=== PATIENT | male | born 1960 | race Caucasian/White ===

== ENCOUNTER 2020-08-28 13:44 | Emergency (ER) | payer OTHER ==
[~2020-08-28] VITALS: Ht 177.8 cm; Wt 83.9 kg
[~2020-08-28 13:44] MED LIST: LEVAQUIN750 M1 PO; PHARMASSURE FO0.4 MG PO
[2020-08-28] MEDS ORDERED: IBUPROFEN600 MG PO (17:05)
[2020-08-28] MEDS ORDERED: HYDROCODONE-AC1 EAC1 PO (17:05)
== END 2020-08-28 17:42 | disposition home or self-care (01) ==
LOC: ED 13:44
DX: S22.42XA Multiple fractures of ribs, left side, initial encounter for closed fracture (principal); S93.402A Sprain of unspecified ligament of left ankle, initial encounter; Z79.899 Other long term (current) drug therapy; Z98.890 Other specified postprocedural states; X58.XXXA Exposure to other specified factors, initial encounter; Y93.89 Activity, other specified; Y92.89 Other specified places as the place of occurrence of the external cause; Y99.8 Other external cause status

== ENCOUNTER → 2022-05-26 | Day surgery (SDC) | payer OTHER ==
[~2022-05-26] VITALS: Ht 177.8 cm; Wt 79.4 kg
[~2022-05-26] MED LIST changes: +HYDROCODONE-AC1 EAC1 PO; +IBUPROFEN600 MG PO; +Meclizine25 MG PO
[2022-05-26 06:52] VITALS: BP 125/81
[2022-05-26 08:08] VITALS: BP 96/60
[2022-05-26 08:23] VITALS: BP 89/58
[2022-05-26 08:38] VITALS: BP 101/64
== END | disposition home or self-care (01) ==
LOC: SDC 05-22 08:00
PROVIDERS: ATTEND Surgery
DX: Z12.11 Encounter for screening for malignant neoplasm of colon (principal); D12.0 Benign neoplasm of cecum; D12.2 Benign neoplasm of ascending colon; D12.3 Benign neoplasm of transverse colon; D12.5 Benign neoplasm of sigmoid colon; K57.30 Diverticulosis of large intestine without perforation or abscess without bleeding; F17.210 Nicotine dependence, cigarettes, uncomplicated; Z79.899 Other long term (current) drug therapy